=== PATIENT | male | born 2000 | race Caucasian/White ===

== ENCOUNTER 2022-03-28 15:38 | Emergency (ER) | payer BC | END 2022-03-28 17:52 | disposition home or self-care (01) | LOC: MW.ED 15:38 | DX: S76.311A Strain of muscle, fascia and tendon of the posterior muscle group at thigh level, right thigh, initial encounter (principal); X50.0XXA Overexertion from strenuous movement or load, initial encounter; Y93.64 Activity, baseball; Y93.02 Activity, running | CPT/HCPCS: 99282; 99283 ==